=== PATIENT | female | born 1950 | race Caucasian/White ===

== ENCOUNTER 2018-04-12 12:58 | Emergency (ER) | payer OTHER ==
[~2018-04-12] VITALS: Ht 157.5 cm; Wt 70.2 kg
[~2018-04-12 12:58] MED LIST: LATA0.009 OPB; MELO7.5T5 PO
[2018-04-12 13:05] VITALS: TEMP 36.6; Ht 157.5 cm; Wt 70.2 kg
[2018-04-12] MEDS ORDERED: ONDANSETRON INJ 2 MG/ML 2 ML VIAL ONE (13:09)
[2018-04-12] MEDS ORDERED: MECLIZINE HCL 25 MG TAB PO STA (13:54)
[2018-04-12] MEDS ORDERED: SODIUM CHLORIDE 0.9% 1000ML 1,000 ML IV STA (13:54)
--- NOTE | 2018-04-12 13:55 | EMERGENCY ROOM VISIT NOTE ---
History Report prepared by [place]: Shireen Culp Under the Supervision of: Dr. Odilia Acosta D.O. First contact with patient: 13:27 Chief Complaint: VOMITING Stated Complaint: DIZZY/VOMIT Nursing Triage Summary: Patient arrives via BLS from home with complaints of N/V/D. PT reports "I was on the phone fighting with [employer] and all of a sudden I felt really dizzy and vomited, ran to the bathroom and had diarrhea. I ate a salad before all this occured." Denies abdominal pain. Denies chest pain. 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 She states she was arguing with [employer] on the phone when all of a sudden, the "room started spinning" and she became severely dizzy, so she put her head down. She called her daughter and when she arrived, the patient was vomiting, having diarrhea, and became clammy. The patient states she vomited 4-5 times and had diarrhea about 1-2 times. She denies any hematochezia or hematemesis. She reports this has never happened to here before. The patient notes the only thing she has done differently was eating a salad of bagged lettuce and cabbage last night and she believes this might be the cause. However, pt had no symptoms last night after the eating the same salad. She denies any headaches, vision changes, chest pain, palpitations, heart problems, recent travel, recent illnesses, or recent dietary changes. 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 The patient currently takes Lipitor. No recent trauma. No paresthesias. 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 Negative heart problems, hematemesis, recent travel, recent illnesses, or recent dietary changes Review of Systems See HPI for pertinent positives & negatives. A total of 10 systems reviewed and were otherwise negative. Past Medical & Surgical Medical Problems: (1) No Known Active Medical Problems Surgical Problems: (1) Previous section (2) S/P JF (total abdominal hysterectomy) Family History Cancer Heart disease Hypertension Kidney disease Kidney stones Social History Smoking Status: Never Smoker Alcohol Use: occasionally Drug Use: none Housing Status: lives alone Occupation Status: retired Current/Historical Medications Scheduled Atorvastatin (Lipitor), 10 MG PO QPM Latanoprost (Xalatan 0.005% Oph Mary Jo), 1 DROPS OPB HS Magnesium (Magnesium), 200 MG PO DAILY Scheduled PRN Meclizine Hcl (Meclizine Hcl), 25 MG PO TID PRN for Dizziness Meloxicam (Mobic), 15 MG PO DAILY PRN for KNEE PAIN Allergies Coded Allergies: No Known Allergies (Unverified , 04/12/18) Physical Exam Vital Signs Date Time Temp Pulse Resp B/P (MAP) Pulse Ox O2 Delivery O2 Flow Rate FiO2 04/12/18 17:16 60 16 132/82 99 04/12/18 16:27 04/12/18 16:27 58 16 127/72 98 Room Air 59 134/77 63 146/89 04/12/18 15:00 55 16 149/77 99 Room Air 04/12/18 13:25 54 04/12/18 13:05 36.6 56 16 158/74 98 Room Air Physical Exam GENERAL: alert, well appearing, well nourished, no distress, non-toxic EYE EXAM: normal conjunctiva, PERRL and EOM's grossly intact. Horizontal nystagmus noted. OROPHARYNX: no exudate, no erythema, lips, buccal mucosa, and tongue normal and mucous membranes are moist NECK: supple, no nuchal rigidity, no adenopathy, non-tender LUNGS: Clear to auscultation. Normal chest wall mechanics HEART: no murmurs, S1 normal and S2 normal ABDOMEN: abdomen soft, non-tender, normo-active bowel sounds, no masses, no rebound or guarding. BACK: Back is symmetrical on inspection and there is no deformity, no midline tenderness, no CVA tenderness. SKIN: no rashes and no bruising UPPER EXTREMITIES: upper extremities are grossly normal. LOWER EXTREMITIES: No pitting edema. NEURO EXAM: Normal sensorium, cranial nerves II-XII grossly intact, normal speech, no gross weakness of arms, no gross weakness of legs. No drift. Finger to nose intact. Gross sensation intact. HINTS exam negative Medical Decision & Procedures ER Provider Diagnostic Interpretation: Radiology results have been interpreted by the radiologist and reviewed by me. ABDOMEN 2VIEW W/PA CHEST RTN CLINICAL HISTORY: n/v/d dyspnea COMPARISON STUDY: 08/27/2016 FINDINGS: The soft tissues, psoas shadows, renal outlines and intestinal gas pattern appear normal. There is no evidence for bowel obstruction. There is no evidence for free intraperitoneal air. No abnormal abdominal calcifications are seen. A frontal view of the chest was performed and is unremarkable. IMPRESSION: Normal study. The above report was generated using voice recognition software. It may contain grammatical, syntax or spelling errors. Electronically signed by: Fan Malone M.D. 04/12/2018 2:29 PM Laboratory Results 04/12/18 13:03 Red Blood Count 4.07, Mean Corpuscular Volume 91.2, Mean Corpuscular Hemoglobin 29.5, Mean Corpuscular Hemoglobin Concent 32.3, Mean Platelet Volume 10.9, Neutrophils (%) (Auto) 64.3, Lymphocytes (%) (Auto) 27.0, Monocytes (%) (Auto) 5.6, Eosinophils (%) (Auto) 2.1, Basophils (%) (Auto) 0.5, Neutrophils # (Auto) 6.18, Lymphocytes # (Auto) 2.59, Monocytes # (Auto) 0.54, Eosinophils # (Auto) 0.20, Basophils # (Auto) 0.05 04/12/18 13:03 Test 04/12/18 13:03 04/12/18 15:02 04/12/18 16:37 White Blood Count 9.61 K/uL (4.8-10.8) Red Blood Count 4.07 M/uL (4.2-5.4) Hemoglobin 12.0 g/dL (12.0-16.0) Hematocrit 37.1 % (37-47) Mean Corpuscular Volume 91.2 fL (80-100) Mean Corpuscular Hemoglobin 29.5 pg (25-34) Mean Corpuscular Hemoglobin Concent 32.3 g/dl (32-36) Platelet Count 250 K/uL (130-400) Mean Platelet Volume 10.9 fL (7.4-10.4) Neutrophils (%) (Auto) 64.3 % Lymphocytes (%) (Auto) 27.0 % Monocytes (%) (Auto) 5.6 % Eosinophils (%) (Auto) 2.1 % Basophils (%) (Auto) 0.5 % Neutrophils # (Auto) 6.18 K/uL (1.4-6.5) Lymphocytes # (Auto) 2.59 K/uL (1.2-3.4) Monocytes # (Auto) 0.54 K/uL (0.11-0.59) Eosinophils # (Auto) 0.20 K/uL (0-0.5) Basophils # (Auto) 0.05 K/uL (0-0.2) RDW Standard Deviation 45.2 fL (36.4-46.3) RDW Coefficient of Variation 13.5 % (11.5-14.5) Immature Granulocyte % (Auto) 0.5 % Immature Granulocyte # (Auto) 0.05 K/uL (0.00-0.02) Prothrombin Time 10.7 SECONDS (9.0-12.0) Prothromb Time International Ratio 1.0 (0.9-1.1) Anion Gap 10.0 mmol/L (3-11) Est Creatinine Clear Calc Drug Dose 68.6 ml/min Estimated GFR () 96.9 Estimated GFR (Non- 83.6 BUN/Creatinine Ratio 26.5 (10-20) Calcium Level 8.6 mg/dl (8.5-10.1) Magnesium Level 2.0 mg/dl (1.8-2.4) Total Bilirubin 0.4 mg/dl (0.2-1) Aspartate Amino Transf (AST/SGOT) 16 U/L (15-37) Alanine Aminotransferase (ALT/SGPT) 28 U/L (12-78) Alkaline Phosphatase 69 U/L (45-117) Troponin I < 0.015 ng/ml (0-0.045) Pro-B-Type Natriuretic Peptide 244 pg/ml (0-900) Total Protein 7.0 gm/dl (6.4-8.2) Albumin 3.7 gm/dl (3.4-5.0) Globulin 3.3 gm/dl (2.5-4.0) Albumin/Globulin Ratio 1.1 (0.9-2) Thyroid Stimulating Hormone (TSH) 1.420 uIu/ml (0.300-4.500) Urine Color YELLOW Urine Appearance CLEAR (CLEAR) Urine pH 6.5 (4.5-7.5) Urine Specific Stuart 1.011 (1.000-1.030) Urine Protein NEG (NEG) Urine Glucose (UA) NEG (NEG) Urine Ketones NEG (NEG) Urine Occult Blood NEG (NEG) Urine Nitrite NEG (NEG) Urine Bilirubin NEG (NEG) Urine Urobilinogen NEG (NEG) Urine Leukocyte Esterase NEG (NEG) Bedside Troponin I < 0.030 ng/ml (0-0.045) Laboratory results per my review. Medications Administered Medications (Trade) Dose Ordered Sig/Ольга Route Start Time Stop Time Status Last Admin Dose Admin Ondansetron HCl (Zofran Inj) 4 mg STK-MED ONCE .ROUTE 04/12/18 13:09 04/12/18 13:10 DC 04/12/18 13:15 4 MG Sodium Chloride 1,000 ml @ 999 mls/hr Q1H1M STAT IV 04/12/18 13:54 04/12/18 14:54 DC 04/12/18 13:55 999 MLS/HR Meclizine HCl (Antivert Tab) 25 mg NOW STAT PO 04/12/18 13:54 04/12/18 13:57 DC 04/12/18 14:11 25 MG Meclizine HCl (Antivert 25MG Home Pack) 1 homepack UD ONCE PO 04/12/18 16:15 04/12/18 16:16 DC 04/12/18 16:30 1 HOMEPACK ECG Per My Interpretation Indication: vomiting, other (dizzy) Rate (beats per minute): 57 Rhythm: sinus bradycardia Findings: no acute ischemic change, no ectopy, other (normal axis, normal intervals) ED Course 1330: The patient was evaluated in room C2. A complete history and physical exam was performed. 1354: Ordered Zofran Inj 4 mg IV, Meclizine HCl 25 mg PO, Sodium Chloride 1000 ml @ 999 mls/hr IV 1550: I checked on the patient at this time. She is feeling much better after the Meclizine. MRI from September 2017 read as normal with the exception of chronic small vessel ischemic changes. 1655: Upon reevaluation, the patient is feeling better. I discussed the findings and the treatment plan with the patient. She verbalizes agreement and understanding. She was discharged home. Medical Decision Prior records/ancillary studies reviewed. Triage Nursing notes reviewed. The patient's history was concerning for dizziness and vertigo. Differential diagnosis: Etiologies such as benign positional vertigo, dehydration, hypovolemia, anemia, tumor, infection, hypoglycemia, electrolyte abnormalities, cardiac sources, intracerebral event, toxicologic, neurologic, as well as others were entertained. Pt improved here after meds and IVF. Given negative neuro exam including HINTS and recent normal MRI, I do not suspect more central cause of vertigo. HPI consistent with peripheral cause. Nystagmus not rotary or vertical. No other sx to suggest cardiac etiology. Trop negative x 2. No ectopy noted on tele during observation here. I do not suspect vascular etiology. No recent trauma, illness, med changes. Pt ambulatory here with a steady gait, tolerating po, aware of all results, ddx and likely etiology of sx today. Discussed with pt sx to watch/return for, f/u with PCP and ENT, she verbalized understanding and is agreeable with plan. Medication Reconcilliation Current Medication List: was personally reviewed by me Blood Pressure Screening Patient's blood pressure: Elevated blood pressure Blood pressure disposition: Elevated BP felt to be situational Impression Primary Impression: Vertigo Additional Impression: Vomiting Scribe Attestation The scribe's documentation has been prepared under my direction and personally reviewed by me in its entirety. I confirm that the note above accurately reflects all work, treatment, procedures, and medical decision making performed by me. Departure Information Dispostion Home / Self-Care Prescriptions Meclizine Hcl (MECLIZINE HCL) 25 Mg Tab 25 MG PO TID Y for Dizziness, #30 TAB Prov: Odilia Acosta, 04/12/18 Referrals Milagros Martins D.O. (PCP) Forms HOME CARE DOCUMENTATION FORM, IMPORTANT VISIT INFORMATION Patient Instructions My [facility] Additional Instructions Please call and follow-up with your family doctor. You may use the meclizine as prescribed every 8 hours. Please exercise extra caution over the next several days to monitor for any change in your symptoms. If you develop worsening dizziness that does not improve with the medication, develop recurrent vomiting, headaches, fevers, numbness or tingling anywhere, palpitations, trouble breathing, chest pain, you have any other new or concerning symptoms, please return to the ER immediately. Please continue your other routine medications. Please sip clear liquids at frequent intervals to stay well-hydrated. Problem Qualifiers Additional Impression: Vomiting Vomiting type: unspecified Vomiting Intractability: non-intractable Nausea presence: with nausea Qualified Codes: R11.2 - Nausea with vomiting, unspecified
[2018-04-12 14:22] LABS: BASO % 0.5 %; BASO ABS # 0.05 K/uL (0-0.2); EOS % 2.1 %; HEMATOCRIT 37.1 % (37-47); IG# 0.05 K/uL (0.00-0.02); LYMPH ABS # 2.59 K/uL (1.2-3.4); MEAN CELL VOLUME 91.2 fL (80-100); MEAN CORPUSCULAR HEMOGLOBIN 29.5 pg (25-34); MEAN CORPUSCULAR HGB CONC 32.3 g/dl (32-36); MEAN PLATELET VOLUME 10.9 fL (7.4-10.4); MONO % 5.6 %; MONO ABS # 0.54 K/uL (0.11-0.59); NEUT % 64.3 %; NEUT ABS # 6.18 K/uL (1.4-6.5); PLATELET COUNT 250 K/uL (130-400); RED CELL DISTRIBUTION WIDTH CV 13.5 % (11.5-14.5); RED CELL DISTRIBUTION WIDTH SD 45.2 fL (36.4-46.3); WHITE BLOOD COUNT 9.61 K/uL (4.8-10.8)
--- NOTE | 2018-04-12 14:30 | DIAGNOSTIC IMAGING REPORT ---
ABDOMEN 2VIEW W/PA CHEST RTN CLINICAL HISTORY: n/v/d dyspnea COMPARISON STUDY: 08/27/2016 FINDINGS: The soft tissues, psoas shadows, renal outlines and intestinal gas pattern appear normal. There is no evidence for bowel obstruction. There is no evidence for free intraperitoneal air. No abnormal abdominal calcifications are seen. A frontal view of the chest was performed and is unremarkable. IMPRESSION: Normal study. The above report was generated using voice recognition software. It may contain grammatical, syntax or spelling errors. Electronically signed by: Fan Malone M.D. 04/12/2018 2:29 PM Dictated Date/Time: 04/12/2018 2:26 PM
[2018-04-12 14:36] LABS: ALBUMIN 3.7 gm/dl (3.4-5.0); ALKALINE PHOSPHATASE 69 U/L (45-117); ALT/SGPT 28 U/L (12-78); AST/SGOT 16 U/L (15-37); BLOOD UREA NITROGEN 20 mg/dl (7-18); CALCIUM 8.6 mg/dl (8.5-10.1); CARBON DIOXIDE 24 mmol/L (21-32); CREATININE 0.75 mg/dl (0.60-1.20); GLUCOSE 124 mg/dl (70-99); POTASSIUM 3.4 mmol/L (3.5-5.1); SODIUM 139 mmol/L (136-145)
[2018-04-12] MEDS ORDERED: MAGN200T3 PO (14:50)
[2018-04-12] MEDS ORDERED: LATA0.5S OPB (14:50)
[2018-04-12] MEDS ORDERED: ATOR10TA82 PO (14:58)
[2018-04-12] MEDS ORDERED: MECLIZINE HCL 25MG HOME PACK PO ONE (16:15)
[2018-04-12] MEDS ORDERED: MECL1TAB42 PO (17:03)
[2018-04-12 17:16] VITALS: BP 132/82; PULSE 60; O2SAT 99
== END 2018-04-12 17:16 | disposition home or self-care (01) ==
LOC: EDBD 12:58 → C.EDC 12:59
DX: R42 Dizziness and giddiness (principal); R11.2 Nausea with vomiting, unspecified; R19.7 Diarrhea, unspecified; R00.1 Bradycardia, unspecified; Z79.899 Other long term (current) drug therapy